=== PATIENT | male | born 1965 | race Caucasian/White ===

== ENCOUNTER 2018-06-28 14:29 | Emergency (ER) | payer BC ==
[~2018-06-28] VITALS: Ht 193 cm; Wt 103.2 kg
[2018-06-28] MEDS ORDERED: ONDANSETRON ODT 4 MG PO ONE (15:00)
[2018-06-28 15:23] LABS: MEAN CORPUSCULAR HEMOGLOBIN 30.1 pg (27.5-34.5); MEAN CORPUSCULAR VOLUME 88.6 fL (81-97); PLATELET COUNT 199 x10^3/uL (130-400); RED BLOOD COUNT 5.48 x10^6/uL (4.38-5.82); RED CELL DISTRIBUTION WIDTH 13.1 % (9.4-14.8)
[2018-06-28 15:29] LABS: ALANINE AMINOTRANSFERASE 25 U/L (12-78); ALBUMIN 4.1 g/dL (3.4-5.0); ANION GAP 7 mmol/L (5-15); CALCIUM 8.5 mg/dL (8.5-10.1); CHLORIDE 108 mmol/L (98-107); CREATININE 1.31 mg/dL (0.7-1.3)
[2018-06-28 15:32] LABS: ALKALINE PHOSPHATASE 84 U/L (45-117); TOTAL PROTEIN 7.2 g/dL (6.4-8.2)
[2018-06-28 15:43] LABS: MD YES
[2018-06-28 15:45] LABS: BAND#(MANUAL) 0.49 x10^3/uL; BANDS%(MANUAL) 4 % (0-7); LYMPH#(MANUAL) 0.49 x10^3/uL (1-3.4); LYMPHS% (MANUAL) 4 % (22-44); MONOS#(MANUAL) 0.37 x10^3/uL (0.3-2.7); MONOS% (MANUAL) 3 % (2-9); SEG#(MANUAL) 10.86 x10^3/uL (1.8-6.8); SEGS% (MANUAL) 89 % (42-75)
[2018-06-28 15:46] LABS: <RBC MORPHOLOGY> NORMAL
[2018-06-28 15:47] LABS: <PLATELET ESTIMATE> ADEQUATE; <PLT MORPHOLOGY> NORMAL PLT MORPH
--- NOTE | 2018-06-28 16:27 | NUR ---
pt ambulatory with steady gait to room. pt given a gown and asked to change.
[2018-06-28] MEDS ORDERED: ONDANSETRON ODT 4 MG ONE (16:31)
--- NOTE | 2018-06-28 16:34 | NUR ---
FIRST CONTACT WITH PATIENT. 52 Y/O MALE PRESENTS TO ED WITH C/O "I HAVE HAD LOOSE STOOLS FOR ABOUT 3 DAYS. IT'S WATERY, BUT NOT WATERY. IT'S SOFTER STOOL WELL. I STARTED THROWING UP THIS MORNING. I'VE THROWN UP ABOUT 3 TIMES TODAY. THE LAST TIME I THREW UP AND HAD SOFTER STOOLS WAS ABOUT 1PM TODAY." PT STATES HE'S BEEN TRAVELING THE LAST FEW DAYS TO [facility]. PT STATES HE DOESN'T HAVE TO USE THE BATHROOM NOW FOR STOOL SAMPLE. NO ACUTE DISTRESS NOTED. NO C/O TRAUMA, SYNCOPE, CP, SOB. PT PLACED ON CONT PULSE OX,NIBP.
--- NOTE | 2018-06-28 16:37 | NUR ---
PT STATES "I''M NOT REALLY NAUSEOUS RIGHT NOW. I'M JUST REALLY TIRED." PT REFUSED ZOFRAN AT THIS TIME. WILL CONTINUE TO MONITOR.
[2018-06-28] MEDS ORDERED: SODIUM CHLORIDE 0.9% 1,000 ML IV ONE (16:52)
[2018-06-28] MEDS ORDERED: SODIUM CHLORIDE 0.9% 1,000ML IVBOLUS ONE (17:00)
--- NOTE | 2018-06-28 18:01 | NUR ---
late entry for 1728: piv ESTABLISHED. PT TOLERATED WITH NO COMPLICATIONS. PT RESTING ON GURNEY. NO C/O NAUSEA OR HAVING TO USE THE RESTROOM AT THIS TIME. NO NEEDS REQUESTED AT THIS TIME.
--- NOTE | 2018-06-28 18:49 | NUR ---
PT RESTING ON GURCONROE. NO ACUTE DISTRESS NOTED.
--- NOTE | 2018-06-28 19:16 | NUR ---
BEDSIDE REPORT TO ERNESTINA DEMARCO.
--- NOTE | 2018-06-28 19:25 | NUR ---
SBAR RPT REC'D FROM ERNESTINA LADD. PT VSS, NAD NOTED. PT DENIES NAUSEA AT THIS TIME. PO FLUID CHALLENGE EXPLAINED AND WATER PLACED AT BEDSIDE. CALL LIGHT W/I REACH
--- NOTE | 2018-06-28 19:42 | NUR ---
PO challenge successful, pt states that he feels ready to go home and has been able to keep down water. Patient/Caregiver given discharge instructions and they have confirmed that they understand the instructions. Patient ambulatory with steady gait.
[2018-06-28 19:43] VITALS: BP 112/68
== END 2018-06-28 19:45 | disposition home or self-care (01) ==
LOC: ED 19:38
DX: A08.4 Viral intestinal infection, unspecified (principal); E86.0 Dehydration; R53.83 Other fatigue
CPT/HCPCS: 36415; 80053; 83690; 85025; 96360; 96361; 99283; J7030